=== PATIENT | female | born 1985 | race Caucasian/White ===

== ENCOUNTER → 2018-03-29 10:50 | Outpatient (CLI) | payer BC, SELFPAY ==
[2018-03-29 12:14] LABS: Add Manual Diff / Slide Review NO; Basophils Percent Auto 0.3 % (0-2); Eosinophils Percent Auto 0.8 % (2-4); Hematocrit 39.6 % (36-46); Hemoglobin 13.9 g/dL (12.0-16.0); Lymphocytes Percent Auto 26.2 % (25-40); Mean Corpuscular HGB Conc 35.2 % (30-36); Mean Corpuscular Hemoglobin 30.5 PG (26-34); Mean Corpuscular Volume 86.6 fL (80-100); Neutrophils Absolute Auto 6200 /uL (3000-5900); Neutrophils Percent Auto 64.7 % (50-75); Platelet Count 359 X10^3/uL (150-400); Red Blood Cell Count 4.57 X10^6/uL (4.0-5.2); Red Cell Distribution Width 13.3 % (11.6-14.8); White Blood Cell Count 9.6 X10^3/uL (4.5-11.0)
[2018-03-29 12:17] LABS: Appearance Urine UA CLEAR; Bilirubin Urine UA NEGATIVE (NEGATIVE); Color Urine UA YELLOW; Glucose Urine UA NEGATIVE (Normal); Ketones Urine UA NEGATIVE (NEGATIVE); Leukocyte Esterase Urine UA NEGATIVE (NEGATIVE); Nitrite Urine UA NEGATIVE (NEGATIVE); Occult Blood Urine UA NEGATIVE (Negative); Protein Urine UA NEGATIVE (Negative); Specific Gravity Urine UA 1.025 (1.000-1.035); Urobilinogen Urine UA 0.2 E.U./dL (0.2)
[2018-03-29 12:46] LABS: WBC Urine 0-1/HPF (0-5/HPF)
[2018-03-29 12:47] LABS: Bacteria Urine Few (2-10); Culture Indicated Urine Cult Not Indicated; Squamous Epithelial Cell Urine 1-5 /HPF
[2018-03-29 19:03] LABS: HIV 1 and 2 Antibody NEGATIVE (NEGATIVE); Hep C Virus Ab w/Reflex Quant NEGATIVE s/c (NEGATIVE); Hepatitis B Surface Antigen NEGATIVE s/c (NEGATIVE); Rubella Antibody IgG 67.2 IU/mL (>15)
[2018-03-30 15:49] LABS: HSV 2 IGG AB < 0.90 index (< 0.90); HSV1IGG < 0.90 index (< 0.90)
[2018-04-01 12:47] LABS: Rapid Plasma Reagin NON-REACTIVE
[2018-04-07 21:43] LABS: Urine Chlamydia Not Detected; Urine N gonorrhoeae Not Detected
== END ==
PROVIDERS: PCP Specialist
DX: Z34.81 Encounter for supervision of other normal pregnancy, first trimester (principal); Z11.3 Encounter for screening for infections with a predominantly sexual mode of transmission; Z11.8 Encounter for screening for other infectious and parasitic diseases
CPT/HCPCS: 36415; 80055; 86850; 86900; 86901; 87491; 87591

== ENCOUNTER → 2018-06-24 08:03 | Outpatient (CLI) | payer BC, SELFPAY ==
--- NOTE | 2018-06-24 08:06 | DI.US.S_ITS ---
PROCEDURE: US OB >= 14 WEEKS FETUS INDICATIONS: 20 WEEK ANATOMIC SURVEY OUTSIDE/PRIOR DATING DATA: Last menstrual period (LMP): Unknown. LMP-based estimated date of delivery (LYN): N./A. First dating scan (date and location): 04/07/18, Dr. Zabala. Estimated date of delivery (LYN) from first dating scan: 11/05/18. TECHNIQUE: Real-time scanning was performed of the fetus, with image documentation and biometric measurements. Endovaginal scanning: Not done COMPARISON: [facility], , OB <= 14 WEEKS FETUS, 04/07/2018, 14:45. [facility], , OB >= 14 WEEKS FETUS, 06/02/2018, 9:25. FINDINGS: General: A single live intrauterine gestation is present. Presentation: Vertex. Placenta: Placental position is right inferior, without previa. Amniotic fluid index: 13.9 cm, normal range is 5-24 cm. heart rate: 137 beats per minute. Maternal cervical canal: 4.2 cm long. Normal lower limit is 2.5 cm. biometrics: Biparietal diameter: 5 cm equals 21 weeks 0 days Head circumference: 19.1 cm equals 21 weeks 2 days Abdominal circumference: 16.2 cm equals 21 weeks 2 days Femur length: 2.7 cm equals 21 weeks 5 days Estimated gestational age from initial scan: 20 weeks 6 days Composite gestational age from present scan: 21 weeks 2 days Estimated weight and percentile: 426 g, 78 percentile Measurement variability for biometric dating: +/- 7 days from 14 weeks to 15 weeks 6 days gestation, +/- 10 days from 16 weeks to 21 weeks 6 days gestation, +/- 2 weeks from 22 weeks to 27 weeks 6 days gestation, +/- 3 weeks for 28 weeks gestation or later. weight reference: 4500 g or EFW >90/95% is considered macrosomia or large for gestational age. EFW <10% is small for gestational age. EFW 5% or less is considered intra-uterine growth restriction. Anatomic survey: Neuro: Ventricles are non-dilated at less than 10 mm. Cisterna magna is normal at 3-11 mm. Cerebellum is normal in size and morphology. Nuchal skin fold: Normal at less than 6 mm between 14-21 weeks gestational age. Face: Nose and lips, facial profile are normal. Spine: No evidence for spina bifida. Heart: 4-chambered heart is present, with normal ventricular outflow tracts. Diaphragm: Diaphragm is intact. Stomach: Left-sided stomach is present. Kidneys: No hydronephrosis. Normal is less than 5 mm in 2nd trimester, less than 7 mm in 3rd trimester. Cord: 3-vessel cord has orthotopic insertion. Bladder: Normal in size. Extremities: All 4 extremities identified. IMPRESSION: No anatomic abnormalities are identified. Normal interval growth when compared to the prior ultrasound examination. Dictated by: Amando Armando M.D. on 06/24/2018 at 8:12 Approved by: Amando Armando M.D. on 06/24/2018 at 8:16
== END ==
PROVIDERS: PCP Specialist; Visit Provider Specialist
DX: Z34.92 Encounter for supervision of normal pregnancy, unspecified, second trimester (principal); Z3A.21 21 weeks gestation of pregnancy
CPT/HCPCS: 76811

== ENCOUNTER → 2018-08-06 12:46 | Outpatient (CLI) | payer BC, SELFPAY ==
[2018-08-06 16:59] LABS: GTT (PREG) 1 Hour PP 50gm Dose 156 mg/dL (76-139)
[2018-08-06 17:06] LABS: Hematocrit 34.8 % (36-46)
== END ==
PROVIDERS: PCP Specialist; Visit Provider Specialist
DX: Z3A.27 27 weeks gestation of pregnancy (principal)
CPT/HCPCS: 36415; 82950; 85014; 85018

== ENCOUNTER → 2018-08-13 07:05 | Outpatient (CLI) | payer BC, SELFPAY ==
[2018-08-13 08:29] LABS: Glucose Fasting Gestational 78 mg/dL (76-95)
[2018-08-13 09:31] LABS: Glucose 1 Hour Gest 137 mg/dL (76-180)
[2018-08-13 10:03] LABS: Glucose 2 Hour Gest 120 mg/dL (76-155)
[2018-08-13 10:24] LABS: Glucose Tol Interp,Gestational INTERPRETATION
[2018-08-13 11:00] LABS: Glucose 3 Hour Gest 94 mg/dL (76-140)
== END ==
PROVIDERS: PCP Specialist; Visit Provider Specialist
DX: R73.02 Impaired glucose tolerance (oral) (principal); Z34.92 Encounter for supervision of normal pregnancy, unspecified, second trimester
CPT/HCPCS: 36415; 82951; 82952

== ENCOUNTER → 2018-10-01 12:19 | Outpatient (CLI) | payer BC, SELFPAY ==
[2018-10-02 14:41] LABS: Strep Grp B PCR NEG for Grp B Strep
== END ==
PROVIDERS: PCP Specialist; Visit Provider Specialist
DX: Z34.03 Encounter for supervision of normal first pregnancy, third trimester (principal)
CPT/HCPCS: 87653

== ENCOUNTER 2018-10-29 05:59 | Inpatient (IN) | payer BC, SELFPAY ==
[2018-10-29 06:45] VITALS: BP 117/81
[2018-10-29] MEDS: LACTATED RINGERS 1,000 ML 100 ML IV ×2 (07:09→09:55)
--- NOTE | 2018-10-29 07:13 | PM.PREOP ---
Pre-operative Note Interval Note Pre-op Check: Yes History & Physical exam performed today by Physician Changes: No
--- NOTE | 2018-10-29 07:13 | PM.OBHP.1 ---
OB HPI Date/Time Date of admission: 10/29/18 Date Patient Seen: 10/29/18 Time Patient Seen: 07:14 History of Present Condition Chief complaint: repeat c section 47524 : 3 Para: 2 Estimated Date of Delivery: 11/04/18 Estimated Gestational Age (weeks): 39 Narrative: Rachel Lim is a 33 year old female at 39 weeks here for repeat transverse section Indications Operative indications ( section): previous uterine surgery History of Present care: good care, initiated at week # (9), number of visits (13) and pounds weight gain (18) Dating criteria: LMP confirmed by 1st trimester US Ultrasounds: normal mid trimester US Obstetrical complications: none Medical complications: none Preadmission Labs Blood type: O (+) positive -: Antibody screen: negative, GBS status: negative, HBsAG: negative, HIV: negative, HSV 1: negative, HSV 2: negative and RPR/VDLR: negative -: Chlamydia screen: not detected and Gonorrhea screen: not detected -: Rubella: immune HCAB: negative 1 hr GTT: 156 3 hr GTT: 1 hr (137), 2 hr (120) and 3 hr (94) Prior (ies) History: 07/23/2013 38 weeks emergency 6 lb 3 oz male 06/07/2015 38 weeks repeat male 8 lb 4 oz Evaluation Evaluation Baseline heart rate: 125 Variability: Moderate (11-25) monitor accelerations: Present monitor decelerations: Absent Category of Tracing: I PFSH Medical History History of depression (Inactive) Surgical History History of section, low transverse (Inactive) Social History Smoking Status: Never smoker Meds Home Medications Medication Instructions Recorded Confirmed Type 1 tab PO DAILY 03/29/18 10/29/18 History vitamin,calcium,coemgexs-rlzo-zvxdz acid tablet Allergies Allergy/AdvReac Type Severity Reaction Status Date / Time hydrocodone AdvReac Mild nausea & Verified 10/29/18 06:49 vomiting oxycodone AdvReac Mild nausea and Verified 10/29/18 06:49 vomiting Review of Systems Review of Systems Patient has no signs or symptoms of preeclampsia. Good movement. No leakage of fluid. No contractions All systems reviewed & are unremarkable except as noted in HPI and below Exam Vital Signs (past 8 hours): - 10/29/18 06:45 Blood Pressure 117/81 Narrative Exam Narrative: HEENT exam within normal limits. Lungs are clear to auscultation and percussion. Abdomen is gravid. Extremities without edema and nontender. Objective Labs Result Diagrams: 10/29/18 06:01 Assessment and Plan (1) 39 weeks gestation of : Current visit: Yes Status: Acute (2) H/O: : Current visit: No Status: Chronic Plan: Plan: Repeat section
[2018-10-29 07:19] LABS: Add Manual Diff / Slide Review NO; Basophils Percent Auto 0.4 % (0-2); Eosinophils Percent Auto 1.1 % (2-4); Hematocrit 36.3 % (36-46); Hemoglobin 12.3 g/dL (12.0-16.0); Lymphocytes Percent Auto 23.2 % (25-40); Mean Corpuscular HGB Conc 33.9 % (30-36); Mean Corpuscular Volume 85.6 fL (80-100); Monocytes Percent Auto 9.6 % (3-14); Neutrophils Absolute Auto 5100 /uL (1500-7000); Neutrophils Percent Auto 65.7 % (50-75); Platelet Count 337 X10^3/uL (150-400); Red Blood Cell Count 4.24 X10^6/uL (4.0-5.2); Red Cell Distribution Width 13.5 % (11.6-14.8); White Blood Cell Count 7.8 X10^3/uL (4.5-11.0)
--- NOTE | 2018-10-29 07:19 | P.HPOB_ITS ---
OB HPI Date/Time Date of admission: 10/29/18 Date Patient Seen: 10/29/18 Time Patient Seen: 07:14 History of Present Condition Chief complaint: repeat c section 41803 : 3 Para: 2 Estimated Date of Delivery: 11/04/18 Estimated Gestational Age (weeks): 39 Narrative: Rachel Lim is a 33 year old female at 39 weeks here for repeat transverse section Indications Operative indications ( section): previous uterine surgery History of Present care: good care, initiated at week # (9), number of visits (13) and pounds weight gain (18) Dating criteria: LMP confirmed by 1st trimester US Ultrasounds: normal mid trimester US Obstetrical complications: none Medical complications: none Preadmission Labs Blood type: O (+) positive -: Antibody screen: negative, GBS status: negative, HBsAG: negative, HIV: negative, HSV 1: negative, HSV 2: negative and RPR/VDLR: negative -: Chlamydia screen: not detected and Gonorrhea screen: not detected -: Rubella: immune HCAB: negative 1 hr GTT: 156 3 hr GTT: 1 hr (137), 2 hr (120) and 3 hr (94) Prior (ies) History: 07/23/2013 38 weeks emergency 6 lb 3 oz male 06/07/2015 38 weeks repeat male 8 lb 4 oz Evaluation Evaluation Baseline heart rate: 125 Variability: Moderate (11-25) monitor accelerations: Present monitor decelerations: Absent Category of Tracing: I PFSH Medical History History of depression (Inactive) Surgical History History of section, low transverse (Inactive) Social History Smoking Status: Never smoker Meds Home Medications Medication Instructions Recorded Confirmed Type 1 tab PO DAILY 03/29/18 10/29/18 History vitamin,calcium,xfcprtop-rinm-nxkes acid tablet Allergies Allergy/AdvReac Type Severity Reaction Status Date / Time hydrocodone AdvReac Mild nausea & Verified 10/29/18 06:49 vomiting oxycodone AdvReac Mild nausea and Verified 10/29/18 06:49 vomiting Review of Systems Review of Systems Patient has no signs or symptoms of preeclampsia. Good movement. No leakage of fluid. No contractions All systems reviewed & are unremarkable except as noted in HPI and below Exam Vital Signs (past 8 hours): - 10/29/18 06:45 Blood Pressure 117/81 Narrative Exam Narrative: HEENT exam within normal limits. Lungs are clear to auscultation and percussion. Abdomen is gravid. Extremities without edema and nontender. Objective Labs Result Diagrams: 10/29/18 06:01 Assessment and Plan (1) 39 weeks gestation of : Current visit: Yes Status: Acute (2) H/O: : Current visit: No Status: Chronic Plan: Plan: Repeat section
[2018-10-29] MEDS: CEFAZOLIN 2 GM/100 ML FROZ.PIGGY IV (07:45)
[2018-10-29] MEDS: ACETAMINOPHEN IV 1,000 MG/100 ML VIAL 400 MG IV (08:17)
--- NOTE | 2018-10-29 08:21 | SUR.OPER ---
Supine on Padded OR bed, head on pillow, safety belt at thigh, arms secured on padded arm boards at <90 degrees abduction. Bump under right buttock. Legs uncrossed with pillow under knees, gel pad to heels, tape over blanket to lower legs.
--- NOTE | 2018-10-29 08:37 | SUR.OPER ---
viable baby girl born at 0814, placenta delivered at 0815, 9/9, cord blood and placenta sent with OB RN
--- NOTE | 2018-10-29 08:56 | PM.OP.1 ---
Operative Date/Time/Diagnoses Date of procedure: 10/29/18 Time of procedure: 08:56 Pre-op diagnosis: Thirty-nine week gestation with 2 prior sections Post-op diagnosis: same Procedure & Clinicians Procedure: Repeat low-transverse section Same procedure as scheduled: Yes Indications: Thirty-nine weeks with 2 prior sections for repeat Surgeon: Leela Zabala Coffee Blender: Rosaura Sanchez Click Yes if Unassisted: No Anesthesia Type: Spinal Operative Notes Findings: Normal tubes ovaries and uterus. Viable female infant weighing 6 lb 13 oz, 3089 g Closure Type: primary Specimen(s): none sent Applied: catheter Estimated Blood Loss (mL): 300 Blood products transfused: none Procedure in detail: The patient was brought to the operating room where she underwent a spinal for anesthesia. She was placed in a supine position with a left lateral tilt. A Metcalf catheter was in place. Pulsatile stockings were placed and functional throughout the case. 2 g of Ancef were given IV prior to the incision. Warming was in place. The patient was prepped and draped in usual sterile fashion. A low transverse incision was made with a scalpel and the incision was carried down to the fascial layer which was incised transversely with scissors. The midline attachments are superiorly and inferiorly. Some bleeding was controlled Bovie. The rectus muscles were in the midline and the peritoneal incision was made with no damage to internal structures. The peritoneum was incised and superiorly and inferiorly. Bladder blade was placed and a bladder flap was developed and the bladder held away from the lower uterine segment. An incision was made in the uterus with the scalpel and the incision was extended with stretching. The was breech so the feet were grasped and the baby pulled out of the uterus to the level of the shoulders. A moist towel was placed around the uterus and that arms were delivered followed by delivering of the infant's head with fundal pressure. The was bulb suctioned for clear fluid and handed off to the warmer. Cord blood was collected. The placenta delivered spontaneously with traction. The uterus was cleaned with clean laps. The uterine incision was closed in 2 layers of 0 chromic suture the first a running locking layer the second an imbricating layer. The bladder peritoneum was repaired with 2-0 Polysorb suture. The gutters were cleaned of any remaining fluids and ovaries and tubes were observed to be normal. Adequate hemostasis was noted. The perineum was closed with 2-0 Polysorb suture. The fascia layer was closed with 0 Polysorb suture with 2 stitches. The incision was irrigated and adequate hemostasis noted. The incision was closed with interrupted 3-0 Polysorb sutures and then a subcuticular stitch of 4-0 Polysorb suture. Steri-Strips were placed. The uterus was massaged to remove any clots. The patient went to recovery room in good condition. Counts of instruments and sponges were correct. Complications: none Condition: stable Disposition: other ( Center) Plan for aftercare: Routine post section
[2018-10-29 08:58] VITALS: BP 116/60; PULSE 62; RESP 16; TEMP 36.5; O2SAT 100
--- NOTE | 2018-10-29 09:00 | P.OP_ITS ---
Operative Date/Time/Diagnoses Date of procedure: 10/29/18 Time of procedure: 08:56 Pre-op diagnosis: Thirty-nine week gestation with 2 prior sections Post-op diagnosis: same Procedure & Clinicians Procedure: Repeat low-transverse section Same procedure as scheduled: Yes Indications: Thirty-nine weeks with 2 prior sections for repeat C- section Surgeon: Leela Zabala Precipitation Equipment Tender: Rosaura Sanchez Click Yes if Unassisted: No Anesthesia Type: Spinal Operative Notes Findings: Normal tubes ovaries and uterus. Viable female infant weighing 6 lb 13 oz, 3089 g Closure Type: primary Specimen(s): none sent Applied: catheter Estimated Blood Loss (mL): 300 Blood products transfused: none Procedure in detail: The patient was brought to the operating room where she underwent a spinal for anesthesia. She was placed in a supine position with a left lateral tilt. A Metcalf catheter was in place. Pulsatile stockings were placed and functional throughout the case. 2 g of Ancef were given IV prior to the incision. Warming was in place. The patient was prepped and draped in usual sterile fashion. A low transverse incision was made with a scalpel and the incision was carried down to the fascial layer which was incised transversely with scissors. The midline attachments are superiorly and inferiorly. Some bleeding was controlled Bovie. The rectus muscles were in the midline and the peritoneal incision was made with no damage to internal structures. The peritoneum was incised and superiorly and inferiorly. Bladder blade was placed and a bladder flap was developed and the bladder held away from the lower uterine segment. An incision was made in the uterus with the scalpel and the incision was extended with stretching. The infant was breech so the feet were grasped and the baby pulled out of the uterus to the level of the shoulders. A moist towel was placed around the uterus and that arms were delivered followed by delivering of the 's head with fundal pressure. The infant was bulb suctioned for clear fluid and handed off to the warmer. Cord blood was collected. The placenta delivered spontaneously with traction. The uterus was cleaned with clean laps. The uterine incision was closed in 2 layers of 0 chromic suture the first a running locking layer the second an imbricating layer. The bladder peritoneum was repaired with 2-0 Polysorb suture. The gutters were cleaned of any remaining fluids and ovaries and tubes were observed to be normal. Adequate hemostasis was noted. The perineum was closed with 2-0 Polysorb suture. The fascia layer was closed with 0 Polysorb suture with 2 stitches. The incision was irrigated and adequate hemostasis noted. The incision was closed with interrupted 3-0 Polysorb sutures and then a subcuticular stitch of 4-0 Polysorb suture. Steri-Strips were placed. The uterus was massaged to remove any clots. The patient went to recovery room in good condition. Counts of instruments and sponges were correct. Complications: none Condition: stable Disposition: other ( Center) Plan for aftercare: Routine post section
[2018-10-29 09:03] VITALS: BP 113/69; PULSE 65; RESP 16; O2SAT 100
[2018-10-29 09:08] VITALS: BP 106/69; PULSE 64; RESP 16; O2SAT 100
[2018-10-29] MEDS: OXYCODONE IR 5 MG TABLET PO ×4 (10:55→22:48)
[2018-10-29] MEDS: KETOROLAC 30 MG/ML VIAL IV (14:25)
[2018-10-29] MEDS: IBUPROFEN 600 MG TABLET PO (21:22)
[2018-10-30] MEDS: OXYCODONE IR 5 MG TABLET PO ×4 (03:00→23:01)
[2018-10-30] MEDS: IBUPROFEN 600 MG TABLET PO ×4 (03:00→21:36)
[2018-10-30 07:21] LABS: Add Manual Diff / Slide Review NO; Basophils Percent Auto 0.5 % (0-2); Eosinophils Percent Auto 0.4 % (2-4); Hematocrit 35.9 % (36-46); Hemoglobin 11.9 g/dL (12.0-16.0); Mean Corpuscular HGB Conc 33.2 % (30-36); Mean Corpuscular Hemoglobin 28.8 PG (26-34); Mean Corpuscular Volume 86.8 fL (80-100); Monocytes Percent Auto 7.2 % (3-14); Neutrophils Absolute Auto 8200 /uL (1500-7000); Neutrophils Percent Auto 66.9 % (50-75); Platelet Count 341 X10^3/uL (150-400); Red Blood Cell Count 4.13 X10^6/uL (4.0-5.2); Red Cell Distribution Width 13.5 % (11.6-14.8); White Blood Cell Count 12.2 X10^3/uL (4.5-11.0)
--- NOTE | 2018-10-30 11:08 | PM.PNPO.1 ---
Subjective Date Patient Seen: 10/30/18 Time Patient Seen: 11:08 Interval history: Postoperative day 1. Repeat low-transverse section Exam Vital Signs (past 8 hours): Blood pressure 122/72, pulse of 85, temperature 98.4? Oxygen Delivery Method Room Air Narrative Exam Narrative: Abdomen is soft, nontender. Uterus is firm, at U, appropriately tender. Dressing is clean, dry, intact. Mild lochia. Extremities with +1 edema and nontender. Objective Labs Result Diagrams: 10/30/18 06:40 Labs: Laboratory Results - last 24 hr 10/30/18 06:40 WBC 12.2 H D RBC 4.13 Hgb 11.9 L Hct 35.9 L MCV 86.8 MCH 28.8 MCHC 33.2 RDW 13.5 Plt Count 341 Neut % (Auto) 66.9 Lymph % (Auto) 25.0 Dickinson % (Auto) 7.2 Eos % (Auto) 0.4 L Baso % (Auto) 0.5 Neut # (Auto) 8200 H Assessment & Plan Post-op (1) Delivery by section of full-term infant: Problem details: Normal 1st day post section exam. Routine post section care. Current Visit: Yes Status: Acute Postoperative Procedures Operation Date: 10/29/18 07:45 Actual Procedures Side Surgeon p Section-Repeat Leela Zabala MD
[2018-10-30] MEDS: LANOLIN OINT 7 GM 1 APPLIC TOP (21:36)
[2018-10-31] MEDS: IBUPROFEN 600 MG TABLET PO (05:02)
[2018-10-31] MEDS: OXYCODONE IR 5 MG TABLET PO ×2 (05:03→08:48)
--- NOTE | 2018-10-31 07:12 | PM.OBDS.1 ---
Discharge Providers Date of admission: 10/29/18 05:59 Primary care physician: Leela Zabala MD Discharge provider: Leela Zabala MD Discharge Date: 10/31/18 Summary Date Patient Seen: 10/31/18 Time Patient Seen: 07:13 Hospital Course: Patient is postoperative day #2 Repeat section. She denies any signs or symptoms of preeclampsia. She is urinating well. She is ambulatory. Her pain is moderate. She is passing gas. Blood pressure is 121/70, pulse 68, temperature 98.4? Patient is O-positive and rubella immune. Abdomen is soft, nontender. Uterus is firm, at U, appropriately tender. Dressing is clean dry and intact. Mild lochia. Extremities with +1 edema, nontender. Peripartum Data Delivery Method: Section Procedures: Repeat low-transverse section complications: none Discharge Diagnosis (1) Delivery by section of full-term : Status: Acute Problem Details: Normal 1st day post section exam. Routine post section care. Status at Discharge Functional status at discharge: independent ambulation Overall status at discharge: patient is progressing back to baseline Time Spent with Patient Total time spent providing and/or coordinating discharge services: Less than 30 minutes Objective Labs Result Diagrams: 10/30/18 06:40 Labs: Laboratory Results - last 24 hr 10/30/18 06:40 WBC 12.2 H D RBC 4.13 Hgb 11.9 L Hct 35.9 L MCV 86.8 MCH 28.8 MCHC 33.2 RDW 13.5 Plt Count 341 Neut % (Auto) 66.9 Lymph % (Auto) 25.0 Bullitt % (Auto) 7.2 Eos % (Auto) 0.4 L Baso % (Auto) 0.5 Neut # (Auto) 8200 H Discharge Plan Discharge Plan Patient Disposition: Home Discharge Med Rec/Prescriptions Prescriptions: New ibuprofen 600 mg Tablet 600 mg PO Q6HR PRN (Reason: As Needed For Fever/Mild Pain) Qty: 30 RF: 0 docusate sodium 250 mg Capsule 250 mg PO DAILY Qty: 20 RF: 0 oxycodone 5 mg Tablet 5 mg PO Q4HR PRN (Reason: Pain, Moderate (4-6)) Qty: 30 RF: 0 No Action prenat.vits,pascual,iru-rouw-qikhq [ Vitamin] tablet 1 tab PO DAILY RF: 0 Follow up/Referrals: Leela Zabala MD [Primary Care Provider] - 1 Week (Incision check Thursday at 9:30 a.m.) Provider Discharge Instructions Diet: Regular Activity: Nothing in vagina for 4 weeks, do not lift over 40 lb Skin/Wound/Dressing Care Report to your healthcare provider any signs of infection, such as:: chills, fever, increased pain and unusual redness Dressing: Leave dressing on until postop appt Discharge Data Primary Care Provider: Leela Zabala Attending Provider: Leela Zabala Admit Date/Time: 10/29/18 05:59
[2018-10-31 09:37] VITALS: BP 106/69; PULSE 64; RESP 16; TEMP 36.5
== END 2018-10-31 12:47 | disposition home or self-care (01) | DRG 788 ==
PROVIDERS: Admitting Provider Specialist; PCP Specialist; Visit Provider Specialist
PROC: 10D00Z1 Extraction of Products of Conception, Low, Open Approach (ICD-10-PCS; CPT 59514; principal; 2018-10-29 07:45)
DX: O34.219 Maternal care for unspecified type scar from previous cesarean delivery (principal); Z3A.39 39 weeks gestation of pregnancy; Z37.0 Single live birth
CPT/HCPCS: 36415; 59050; 59510; 59514; 85025; 86850; 86900; 86901; J0131; J0690; J1100; J1885; J2274; J2405; J2590

== ENCOUNTER → 2020-01-06 16:02 | Outpatient (CLI) | payer BC, SELFPAY ==
--- NOTE | 2020-01-06 16:07 | DI.US.S_ITS ---
PROCEDURE: US THYROID INDICATIONS: BENIGN NEOPLASM OF THYROID GLAND TECHNIQUE: Real-time scanning was performed of the thyroid gland, with image documentation. COMPARISON: None. FINDINGS: Right: Thyroid lobe measures 5.4 x 1.3 x 1.8 cm, and is homogeneous in echotexture. Left: Thyroid lobe measures 5.5 x 0.9 by 1.6 cm, and is homogenous in echotexture. Isthmus: 3 mm thick. Nodule number: 1 Location: Right mid lobe Size: 1.0 x 0.5 x 0.6 cm. Composition: spongiform Echogenicity: Hypoechoic Shape: wider than tall. Margins: Smooth Echogenic foci: None Total points: 2 ACR TI-RADS category: Not suspicious IMPRESSION: Small solitary right mid lobe nodule as above. No FNA required per consensus guidelines below ACR TI-RADS definitions and recommendations: TI-RADS 1 (benign): 0 points. FNA not needed. TI-RADS 2 (not suspicious): 2 points. FNA not needed. TI-RADS 3 (mildly suspicious): 3 points. * FNA if 2.5 cm or larger, follow up if 1.5 cm or larger (at 1, 3, and 5 years). TI-RADS 4 (moderately suspicious): 4-6 points. * FNA if 1.5 cm or larger, follow up if 1 cm or larger (at 1, 2, 3, and 5 years). TI-RADS 5 (highly suspicious): 7 points or more. * FNA if 1 cm or larger, follow up if 0.5 cm or larger (every year for 5 years). Dictated by: Win Gomez M.D. on 01/06/2020 at 16:54 Approved by: Win Gomez M.D. on 01/06/2020 at 16:57
== END ==
PROVIDERS: PCP Specialist; Referring Provider Nurse Practitioner Family; Visit Provider Nurse Practitioner Family
DX: D34 Benign neoplasm of thyroid gland (principal)
CPT/HCPCS: 76536

== ENCOUNTER → 2021-03-12 10:43 | Outpatient (CLI) | payer BC, SELFPAY ==
--- NOTE | 2021-03-12 10:45 | DI.MRI.S_ITS ---
PROCEDURE: MR SHOULDER RT W CON INDICATIONS: Sprain of right rotator cuff capsule, initial enco TECHNIQUE: After the administration of 12 mL of dilute intra-articular Gadolinium contrast, oblique coronal T1 and T2 spin echo with fat saturation, oblique sagittal T1 spin echo with and without fat saturation, oblique sagittal T2 fast spin echo with fat saturation, axial T1 spin echo with fat saturation through the shoulder. COMPARISON: [facility], , [place] SHOULDER INJECTION MR/CT RT, 03/12/2021, 11:12. FINDINGS: Image quality: Mildly degraded by patient motion on multiple pulse sequences. Diagnostic information is obtained. Rotator cuff: There is severe supraspinatus and infraspinatus tendinosis without a discrete tear. The teres minor and subscapularis tendons are intact. There is no significant rotator cuff muscle atrophy. Bones and bursae: No acute trabecular bone injury. Small chronic traction cystic changes are seen at the posterosuperior humeral head. No significant glenohumeral degenerative changes are seen. There are mild degenerative changes of the acromioclavicular joint. There is no intra-articular loose body. No subacromial/subdeltoid bursal effusion is seen. Capsule and soft tissues: The labrum and glenohumeral ligaments appear intact. The long head of the biceps tendon demonstrates normal location and morphology. IMPRESSION: 1. Severe tendinosis of the supraspinatus and infraspinatus tendons at their insertions without a discrete rotator cuff tendon tear. 2. Intact glenoid labrum. No acute trabecular bone injury. 3. Mild acromioclavicular joint osteoarthrosis. Dictated by: Srinivasa Gayle M.D. on 03/12/2021 at 14:23 Approved by: Srinivasa Gayle M.D. on 03/12/2021 at 14:31
--- NOTE | 2021-03-12 10:45 | DI.RAD.S_ITS ---
PROCEDURE: FL SHOULDER INJECTION MR/CT RT INDICATIONS: Sprain of right rotator cuff capsule, initial enco COMPARISON: None. TECHNIQUE: The indications, alternatives, benefits, risks, and complications of the procedure were explained to the patient. Written informed consent was obtained and placed in the chart. The shoulder was examined fluoroscopically and a site for needle placement chosen for entry into the glenohumeral joint from an anterior approach. The skin was prepped and draped in a sterile fashion, and 1% lidocaine infiltrated from skin down to joint capsule. A spinal needle was inserted into the glenohumeral joint, and a small amount of iodinated contrast media injected to confirm intra-articular placement of the needle tip. This was followed by approximately 12 mL dilute solution of a gadolinium containing MR contrast agent. The needle was removed and a dressing was applied. The patient was given postprocedural instructions and sent to the MR suite for MR imaging. FINDINGS: A single fluoroscopic spot image demonstrates intra-articular location of injected iodinated contrast. IMPRESSION: Successful fluoroscopically guided administration of dilute Gadolinium solution into the shoulder joint for MR arthrogram. Dictated by: Amadou Alonzo M.D. on 03/12/2021 at 14:36 Approved by: Amadou Alonzo M.D. on 03/12/2021 at 14:36
== END ==
PROVIDERS: PCP Nurse Practitioner Family; Referring Provider Nurse Practitioner Family; Visit Provider Nurse Practitioner Family
DX: S43.421A Sprain of right rotator cuff capsule, initial encounter (principal); M19.011 Primary osteoarthritis, right shoulder; X58.XXXA Exposure to other specified factors, initial encounter
CPT/HCPCS: 23350; 73222; 77002

== ENCOUNTER → 2021-09-16 14:34 | Outpatient (CLI) | payer BC, SELFPAY ==
--- NOTE | 2021-09-16 | DI.US.S_ITS ---
PROCEDURE: US PELVIC COMPLETE INDICATIONS: PELVIC PAIN TECHNIQUE: Real-time scanning was performed of the pelvic organs, with image documentation. Additional endovaginal scanning was necessary due to incomplete visualization of the adnexal and endometrial structures by transabdominal scanning. COMPARISON: None. FINDINGS: Uterus: Uterus is normal in size at 7.5 x 6.3 x 4.1 cm. The endometrium measures 12.2 mm in combined thickness. No gross endometrial mass or fluid is seen. Possible arcuate uterus is seen. Small nabothian cysts are noted in endocervical canal. Ovaries: Right ovary measures 3.5 x 2.4 x 2.3 cm in size and is within normal limits. Left ovary measures 2.4 x 1.7 x 1.1 cm in size and is within normal limits. Other: No pathologic free abdominal or pelvic fluid. Physiologic amount of fluid is noted in lower pelvis. IMPRESSION: 1. Possible arcuate uterus. No discrete uterine fibroid. No endometrial mass or fluid. 2. No gross abnormality is seen in bilateral ovaries. Dictated by: Flo Jacobson M.D. on 09/16/2021 at 16:17 Approved by: Flo Jacobson M.D. on 09/16/2021 at 16:21
== END ==
PROVIDERS: PCP Nurse Practitioner Family; Referring Provider Nurse Practitioner Family; Visit Provider Nurse Practitioner Family
DX: R10.2 Pelvic and perineal pain (principal)
CPT/HCPCS: 76830; 76856

== ENCOUNTER → 2022-12-25 10:26 | Outpatient (CLI) | payer BC, SELFPAY ==
--- NOTE | 2022-12-25 | DI.MRI.S_ITS ---
PROCEDURE: MR HEAD/BRAIN WO CON INDICATIONS: Dizziness and giddiness TECHNIQUE: Noncontrast axial T1 spin echo, axial T2 fast spin echo, sagittal and axial FLAIR, coronal T2 fast spin echo, axial gradient echo, axial diffusion and ADC through the brain. COMPARISON: None. FINDINGS: Image quality: Excellent. CSF Spaces: Basal cisterns are patent. No extra-axial fluid collections. Ventricles are normal in size and shape. Brain: No intracranial masses or hemorrhage. Amaya/white matter interface is normal. Brainstem appears normal. Diffusion-weighted images demonstrate no acute ischemic insult. No chronic ischemic insults. Normal intravascular flow voids are present. Skull and face: Calvarium has normal marrow signal. Orbits appear normal. Sinuses: Sinuses and mastoids are clear. IMPRESSION: Normal MRI of the brain Approved by: Ricardo Tai M.D. on 12/25/2022 at 16:04
== END ==
PROVIDERS: PCP Nurse Practitioner Family; Referring Provider Nurse Practitioner Family; Visit Provider Nurse Practitioner Family
DX: R42 Dizziness and giddiness (principal)
CPT/HCPCS: 70551

== ENCOUNTER → 2022-12-31 12:06 | Outpatient (CLI) | payer BC, SELFPAY ==
--- NOTE | 2022-12-31 12:07 | DI.US.S_ITS ---
PROCEDURE: US THYROID INDICATIONS: Nontoxic single thyroid nodule TECHNIQUE: Real-time scanning was performed of the thyroid gland, with image documentation. COMPARISON: [facility], [place], US THYROID, 01/06/2020, 16:32. FINDINGS: Right: Thyroid lobe measures 6.2 x 1.4 x 2.1 cm. Left: Thyroid lobe measures 5.3 x 1 x 1.6 cm, and is homogenous in echotexture. Isthmus: 3 mm thick. Nodule number: 1 Location: Right mid thyroid Size: 1 x 0.5 x 0.8 cm, prior 1 x 0.5 x 0.6. Composition: Spongiform Echogenicity: Hypoechoic Shape: wider than tall. Margins: Smooth Echogenic foci: None. Total points: 2 ACR TI-RADS category: 2 IMPRESSION: There is a stable 1 cm right thyroid nodule seen, which is not regarded to be suspicious. ACR TI-RADS definitions and recommendations: TI-RADS 1 (benign): 0 points. FNA not needed. TI-RADS 2 (not suspicious): 2 points. FNA not needed. TI-RADS 3 (mildly suspicious): 3 points. * FNA if 2.5 cm or larger, follow up if 1.5 cm or larger (at 1, 3, and 5 years). TI-RADS 4 (moderately suspicious): 4-6 points. * FNA if 1.5 cm or larger, follow up if 1 cm or larger (at 1, 2, 3, and 5 years). TI-RADS 5 (highly suspicious): 7 points or more. * FNA if 1 cm or larger, follow up if 0.5 cm or larger (every year for 5 years). Dictated by: Amando Armando M.D. on 12/31/2022 at 12:23 Approved by: Amando Armando M.D. on 12/31/2022 at 12:24
== END ==
PROVIDERS: PCP Nurse Practitioner Family; Referring Provider Nurse Practitioner Family; Visit Provider Nurse Practitioner Family
DX: E04.1 Nontoxic single thyroid nodule (principal)
CPT/HCPCS: 76536